=== PATIENT | female | born 1980 | race American Indian/Alaskan Native ===

== ENCOUNTER 2017-03-18 02:06 | Inpatient (IN) | payer SELFPAY ==
[2017-03-18 03:28] LABS: Anion Gap 16 mmol/L; Blood Urea Nitrogen 11 mg/dL (7-17); Calcium 8.9 mg/dL (8.4-10.2); Carbon Dioxide 26 mmol/L (22-30); Chloride 103.8 mmol/L (98-107); Glucose 100 mg/dL (65-100); Potassium 3.9 mmol/L (3.6-5.0); Sodium 142 mmol/L (137-145)
[2017-03-18 03:39] LABS: Basophils % (Auto) 0.3 % (0.0-1.8); Eosinophils % (Auto) 1.5 % (0.0-4.3); Hematocrit 38.4 % (30.3-42.9); Hemoglobin 12.6 gm/dl (10.1-14.3); Mean Corpuscular HGB Conc 33 % (30-34); Mean Corpuscular Volume 78 fl (79-97); Platelet Count 302 K/mm3 (140-440); Red Blood Count 4.96 M/mm3 (3.65-5.03); Red Cell Distribution Width 15.4 % (13.2-15.2); White Blood Count 8.1 K/mm3 (4.5-11.0)
[2017-03-18 03:41] LABS: Mean Corpuscular Hemoglobin 25 pg (28-32)
[2017-03-18 03:48] LABS: INR 0.88 (0.87-1.13)
[2017-03-18 03:49] LABS: Partial Thromboplastin Time 29.5 Sec. (24.2-36.6)
--- NOTE | 2017-03-18 07:20 | XRay Report ---
CHEST 2 VIEWS INDICATION: Cough, shortness of breath, chest tightness. COMPARISON: None similar at this institution. FINDINGS: PA and lateral chest radiographs suggest top normal heart size. Clear lungs. Unremarkable bones. CONCLUSION: No significant acute chest process, as described. Thank you for the opportunity to participate in this patient's care.
[2017-03-18] MEDS ORDERED: NITRO-BID 2% TP ONE (07:59)
[2017-03-18] MEDS ORDERED: MORPHINE IV ONE ×2 (07:59→11:00)
[2017-03-18] MEDS ORDERED: ZOFRAN IV ONE (07:59)
--- NOTE | 2017-03-18 08:04 | Emergency Department Report ---
HPI - General Chief Complaint: Chest Pain Time Seen by Provider: 03/18/17 07:48 - HPI HPI: Room 18 The patient is a 36-year-old female presenting with a chief complaint of headache and chest pain. The patient states she has had chronic intermittent headaches upon awakening for the past 56 years but has never been evaluated for them. The patient states yesterday morning she also developed substernal chest pain described as heaviness that has been constant. Patient states the pain is associated with shortness of breath but denies nausea/vomiting or diaphoresis. The patient currently gives her chest heaviness a score of 7/10. Patient states she's never had a stress test or cardiac catheterization Location: Head, chest Duration: [see above] Quality: Heaviness Severity:7/10 Modifying factors: [see above] Context: [see above] Mode of transportation: [not driving] ED Past Medical Hx - Past Medical History Previous Medical History?: No - Surgical History Past Surgical History?: Yes Additional Surgical History: TUBAL LIGATION - Family History Family history: no significant - Social History Smoking Status: Never Smoker Substance Use Type: None (denies illicit drug use), Alcohol (occasional) - Medications Home Medications: Home Medications Medication Instructions Recorded Confirmed Last Taken Type No Known Home Medications [No 03/18/17 03/18/17 Unknown History Reported Home Medications] ED Review of Systems ROS: Stated complaint: CHEST PAIN Other details as noted in HPI Comment: All other systems reviewed and negative Constitutional: denies: chills, fever Eyes: denies: eye pain, eye discharge, vision change ENT: denies: ear pain, throat pain Respiratory: shortness of breath Cardiovascular: chest pain Endocrine: no symptoms reported Gastrointestinal: denies: abdominal pain, nausea, diarrhea Genitourinary: denies: urgency, dysuria, discharge Musculoskeletal: denies: back pain, joint swelling, arthralgia Skin: denies: rash, lesions Neurological: headache Psychiatric: denies: anxiety, depression Hematological/Lymphatic: denies: easy bleeding, easy bruising Physical Exam - Physical Exam Vital Signs: Vital Signs 03/18/17 03/18/17 03/18/17 02:17 07:37 07:38 Temperature 98.2 F Pulse Rate 92 H 87 81 Respiratory 18 16 19 Rate Blood Pressure 156/115 142/92 Blood Pressure [Right] O2 Sat by Pulse 98 100 100 Oximetry 03/18/17 03/18/17 07:39 07:40 Temperature 98.3 F Pulse Rate 85 90 Respiratory 20 19 Rate Blood Pressure 142/92 Blood Pressure 142/92 [Right] O2 Sat by Pulse 100 100 Oximetry Physical Exam: GENERAL: The patient is well-developed well-nourished female lying on stretcher not appearing to be in acute distress. [] HEENT: Normocephalic. Atraumatic. Extraocular motions are intact. Patient has moist mucous membranes. PERRL NECK: Supple. Trachea midline CHEST/LUNGS: Clear to auscultation. There is no respiratory distress noted. HEART/CARDIOVASCULAR: Regular. There is no tachycardia. There is no gallop rub or murmur. ABDOMEN: Abdomen is soft, nontender. Patient has normal bowel sounds. There is no abdominal distention. SKIN: There is no rash. There is no edema. There is no diaphoresis. NEURO: The patient is awake, alert, and oriented. The patient is cooperative. The patient has no focal neurologic deficits. The patient has normal speech. Cranial nerves II through XII grossly intact, no drift. 5+/5 plantarflexion of both feet. MUSCULOSKELETAL: There is no evidence of acute injury. ED Course Vital Signs 03/18/17 03/18/17 03/18/17 02:17 07:37 07:38 Temperature 98.2 F Pulse Rate 92 H 87 81 Respiratory 18 16 19 Rate Blood Pressure 156/115 142/92 Blood Pressure [Right] O2 Sat by Pulse 98 100 100 Oximetry 03/18/17 03/18/17 07:39 07:40 Temperature 98.3 F Pulse Rate 85 90 Respiratory 20 19 Rate Blood Pressure 142/92 Blood Pressure 142/92 [Right] O2 Sat by Pulse 100 100 Oximetry ED Medical Decision Making - Lab Data Result diagrams: 03/18/17 02:33 03/18/17 02:33 Laboratory Tests 03/18/17 03/18/17 03/18/17 02:33 02:33 02:33 WBC 8.1 RBC 4.96 Hgb 12.6 Hct 38.4 MCV 78 L MCH 25 L MCHC 33 RDW 15.4 H Plt Count 302 Lymph % (Auto) 47.2 H [place] % (Auto) 8.3 H Eos % (Auto) 1.5 Baso % (Auto) 0.3 Lymph # 3.8 Corson # 0.7 Eos # 0.1 Baso # 0.0 Seg Neutrophils % 42.7 Seg Neutrophils # 3.5 PT 11.8 L INR 0.88 APTT 29.5 Sodium 142 Potassium 3.9 Chloride 103.8 Carbon Dioxide 26 Anion Gap 16 BUN 11 Creatinine 0.4 L Estimated GFR > 60 BUN/Creatinine Ratio 27.50 Glucose 100 Calcium 8.9 Troponin T < 0.010 HCG, Qual 03/18/17 03/18/17 02:33 05:20 WBC RBC Hgb Hct MCV MCH MCHC RDW Plt Count Lymph % (Auto) [place] % (Auto) Eos % (Auto) Baso % (Auto) Lymph # Cors[place] # Eos # Baso # Seg Neutrophils % Seg Neutrophils # PT INR APTT Sodium Potassium Chloride Carbon Dioxide Anion Gap BUN Creatinine Estimated GFR BUN/Creatinine Ratio Glucose Calcium Troponin T < 0.010 HCG, Qual Negative - EKG Data -: EKG Interpreted by Me EKG shows normal: sinus rhythm Rate: normal - EKG Data When compared to previous EKG there are: previous EKG unavailable Interpretation: nonspecific ST-T wave ubaldo (T-wave inversions in leads 3, V3, V4 , V5, V6) - Radiology Data Radiology results: report reviewed (CT head), image reviewed (chest x-ray, CT head) interpreted by me: Chest x-ray-no focal infiltrates, no pneumothorax CT head (read by radiologist)- no acute intracranial CT abnormalities - Differential Diagnosis ACS, GERD, pericarditis, intracranial mass, migraines Critical care attestation.: If time is entered above; I have spent that time in minutes in the direct care of this critically ill patient, excluding procedure time. ED Disposition Clinical Impression: Chest pain, T wave inversion in EKG, Headache Disposition: OP ADMIT IP TO THIS HOSP Is pt being admited?: Yes Does the pt Need Aspirin: Yes Condition: Fair Instructions: Chest Pain (ED) Referrals: PRIMARY CARE, [Primary Care Provider] - 3-5 Days Time of Disposition: 09:01 (hospitalist paged)
[2017-03-18] MEDS ORDERED: MORPHINE ONE (08:14)
--- NOTE | 2017-03-18 08:41 | Admit Criteria Form ---
Admission Criteria Documentation: CARDIOLOGY GRG Clinical Indications for Admission to Inpatient Care ([place]/check or initial the applicable condition/criteria) Hospital admission is needed for appropriate care of the patient because of ANY ONE of the following: [ ] I. Hemodynamic instability as indicated by ALL of the following (1)(2)(3) (4)(5)(6)(7)(8)(9)(10) [ ]a) Vital sign abnormality not readily corrected by appropriate treatment with 12-24 hours for ANY ONE: [ ]i) Hypotension that persists despite appropriate treatment (eg, volume repletion) [ ]ii) Tachycardiathat persists despite appropriate tx ( e.g., analgesia, fluids, sedation as indicated [ ]iii) Orthostatic vital sign changes that persists despite appropriate treatment (eg, volume repletion) [ ]b) Vital sign abnormailty that is severe indicated by ANY ONE of the following: [ ]i) Inadequate perfusion indicated by ANY ONE of the following: [ ] 1) Lactic acidosis (> 2 mmol/L) [ ] 2) New abnormal capillary refill (> 3 seconds) [ ] 3) Reduced urine output [ ] 4) New altered mental status [ ] 5) Myocardial Ischemia [ ] 6) Other metabolic acidosis (arterial pH <7.35 ) not otherwise explained. [ ]ii) Mean arterial pressure[A] less than 60 mm Hg [ ]iii) Mean arterial pressure[A] less than 70 mm Hg after 30 minutes of appropriate treatment (eg, fluid resuscitation) [ ]iv) Sustained heart rate greater than 120 beats per minute in adult or child 6 years or older[B] [ ]v) IV inotropic or vasopressor medication required to maintain adequate blood pressure or perfusion [ ] II. Severe heart failure as indicated by ANY ONE of the following(17)(18) [ ]a) Respiratory distress [ ]b) Hypotension [ ]c) Debilitating anasarca refractory to therapy (eg, tissue breakdown with infection)[C](19) [ ]d) Cardiac arrhythmias of immediate concern [ ]e) Myocardial ischemia [ ] III. Cardiac arrhythmias or findings of immediate concern indicated by ANY ONE of the following (21)(22): [ ] a) Heart rhythms that are inherently dangerous or unstable indicated by ANY ONE of the following (23)(24)(25): [ ] i) Resuscitated ventricular fibrillation or cardiac arrest [ ] ii) Ventricular escape rhythm [ ] iii) Sustained ventricular tachycardia (30 seconds or more of ventricular rhythm at greater than 100 beats per minute) [ ] iv) Nonsustained ventricular tachycardia and ANY ONE of the following: [ ] 1) Suspected cardiac ischemia as cause or consequence of ventricular tachycardia [ ] 2) Acute myocarditis [ ] b) Unstable cardiac conduction defects indicated by ANY ONE of the following(25)(26)(27) [ ] i) Type II second-degree atrioventricular block [ ]ii) Third-degree atrioventricular block [ ]iii) New-onset left bundle branch block with suspected myocardial ischemia [ ]c) Any heart rhythm and ANY ONE of the following (23)(24)(28)(29) (30) [ ] i) Continuous long-term ECG monitoring needed (e.g., initiation of drug requiring monitoring for more than 24 hours) [ ] ii) Patient has automatic implanted cardioverter defibrillator that is repeatedly firing, malfunctioning, or in need of immediate adjustment of settings beyond the scope of ambulatory or observation care [ ]d) Heart rhythms of concern due to ANY ONE of the following: [ ] i) Hypotension [ ] ii) Respiratory distress [ ] iii) Association with other significant symptoms (e.g., bradycardia with syncope or ongoing dizziness, supraventricular tachycardia with chest pain (28)(29)(31) [ ] IV. Monitoring for cardiac contusion beyond the scope of observation care needed [A](32)(33)(34) [ ] V. Surgical or device complication (e.g., valve replacement complication , ICD disfunction or pacemaker dysfunction) (49)(50)(51)(52)(53)(54) [ ] . Inpatient palliative care needed. [F](51)(52) Also use Inpatient Palliative Care Criteria [ ] VII. Nonbacterial thrombotic (marantic) endocarditis(43)(44)(55)(56)(57) [X ] VIII. Cardiology condition, symptom, or finding for which emergency and observation care has failed or are not considered appropriate. [ ] IX. Acute valvular disease requiring inpatient as indicated by ANY ONE of the following (40)(41) [ ]a) Acute valvular regurgitation (42) [ ]b) Noninfectious valvulitis (43)(44) [ ]c) Obstructive valve thrombosis (45)(46) [ ]d) Paravalvular leak(47)(48) [ ]e) Other significant valvular disorder remaining after emergency or observation level of care (as appropriate) [ ]X. Pericardial disease requiring inpatient treatment as indicated by ANY ONE of the following (35)(36)(37)(38) [ ]a) Suspected tamponade [ ]b) Hemopericardium [ ]c) Other significant pericardial disorder remaining after emergency or observation level of care (as appropriate)(39) [ ] XI. Cardiac ischemia beyond scope of emergency and observation care. [ ] XII. Cyanotic heart disease requiring inpatient care as indicated by 1 or more of the following(58)(59)(60): [ ]a) Acute onset of hypoxemia [ ]b) Exacerbation [ ] XIII. Hypertension requiring inpatient treatment as indicated by ANYONE of the following(11)(12)(13)(14): [ ]a) Severe hypertension (SBP greater than 180 mm Hg or DBP greater than 110 mm Hg, or greater than the 95th percentile for age, gender, and height in pediatric patients) that cannot be controlled (eg, to SBP less than 160 mm Hg and DBP less than 100 mm Hg) by emergency department or observation care treatment(15) [ ]b) Acute end organ damage secondary to hypertension (SBP greater than 140 mm Hg or DBP greater than 90 mm Hg) as indicated by ANYONE of the following: [ ] i) Hypertensive encephalopathy (eg, Altered mental status)(16) [ ] ii) Cerebral infarction [ ] iii) Intracranial hemorrhage [ ] iv) Myocardial ischemia or infarction [ ] v) Heart failure (eg, pulmonary edema) [ ] vi) Aortic dissection [ ] vii) Increased creatinine (new) with reduction of more than 50% in estimated glomerular filtration rate from baseline [ ] viii) Papilledema [ ] ix) Retinal hemorrhage [ ] x) Microangiopathic hemolytic anemia [ ] xi) Seizure [ ] xii) Other significant finding secondary to hypertension [ ] XIV. Complications of transplanted heart indicated by ANY ONE of the following(61): [ ]a) Acute graft rejection requiring inpatient management (eg, intravenous imunosuppression)(62)(63) [ ]b) Acute graft heart failure indicated by ANY ONE of the following(64): [ ] i) Hemodynamic instability [ ] ii) Cardiac arrhythmias of immediate concern [ ] iii) Pulmonary edema that is very severe (eg, mechanical ventilation needed, imminent or likely, need for 100% oxygen to keep oxygen saturation above 90%) [ ] iv) Pulmonary edema that is persistent as indicated by ALL of the following: [ ] 1) New need for oxygen therapy to keep oxygen saturation above 90 % (or increased FiO2 need from baseline) [ ] 2) Has not improved sufficiently with emergency department or observation care IV diuretics or other heart failure treatments[E]. [ ] iv) Altered mental status that is severe or persistent [ ] iv) Increased creatinine (new on laboratory test) with reduction of more than 50% in estimated glomerular filtration rate from baseline [ ] iv) Progressively (ongoing) rising creatinine (known from past laboratory test) with reduction of more than 25% in estimated glomerular filtration rate from baseline [ ] iv) Acute renal failure [ ] iv) Acute peripheral ischemia (eg, examination shows pulseless, cool, mottled, or cyanotic extremity) [ ] iv) Pulmonary artery catheter monitoring needed [ ] iv) Other sign or symptom of heart failure requiring inpatient treatment (ie, too severe or not responsive to outpatient and observation care treatment) [ ]c) Infection requiring inpatient management (eg, Hemodynamic instability, need for intravenous antimicrobial treatment)(66)(67)(68)(69)(70) [ ]d) Cardiac allograft vasculopathy requiring inpatient management (eg evidence of cardiacischemia)(71) [ ]e) Other complication of transplanted heart (eg, stroke, severe pulmonary hypertension, severe valvular dysfunction) requiring inpatient management(72) The original [employer] content created by [employer] has been revised. The portions of the content which have been revised are identified through the use of italic text or in bold, and [facility] has neither reviewed nor approved the modified material. All other unmodified content is copyright [facility]. Please see references footnoted in the original [facility] edition 2017 Admission Criteria Met: Yes
--- NOTE | 2017-03-18 09:15 | Cat Scan Report ---
CT HEAD WITHOUT CONTRAST INDICATION: Headache. COMPARISON: None similar. FINDINGS: Noncontrast head CT demonstrates normal, symmetric ventricles and sulci without acute or recent infarct, hemorrhage, mass effect or midline shift. No abnormal extra-axial fluid collections. Posterior fossa structures and basilar cisterns appear within normal limits. Symmetric eye globes. Mild leftward nasal septal deviation. Clear paranasal sinuses and mastoid air cells. Intact calvarium. Normal overlying scalp soft tissues. Small radiopaque dental material incidentally noted. Approximately 3.3 x 1.9 cm prominent/enlarged adenoids may be directly visualized. Bilateral earrings artifact. CONCLUSION: No acute intracranial CT abnormality, as described. Thank you for the opportunity to participate in this patient's care.
[2017-03-18] MEDS ORDERED: ASPIRIN PO ONE (09:22)
--- NOTE | 2017-03-18 09:53 | History and Physical Report ---
History of Present Illness Date of examination: 03/18/17 Date of admission: 03/18/2017 Chief complaint: Chest Pain History of present illness: Patient is a 36 years old -[place] female with no past medical history who presents to the emergency department complaining of chest pain. She states that the pain began yesterday and consisted of a sharp pain. The pain was located over the Midsternal somewhat to the left shoulder area . She noticed the pain this morning as he was getting out of bed and while the patient was walking to the bath room. She describes the quality as something is sitting on her chest /pressure without radiation to the shoulder, arm, back, or jaw. It has been a constant pain since it started last night. no alleviating or aggravating factors. He continued to have several episodes of the pain throughout this morning, she got worried so she decided to come to emergency room. Patient took Tylenol and Motrin with out improvement. At the ED the patient was given nitroglycerin and ASA somewhat believes relief the pain. She reported shortness of breath and dyspnea on exertion. She denies nausea, vomiting heart palpitations lightheadedness, dizziness, and diaphoresis during these episodes of pain. The patient currently denies having chest pain. She He has never had chest pain in the past and no prior cardiac workup. Patient also states she has had chronic intermittent headaches upon awakening for the past 5- 6 years but has never been evaluated for that. Past History Past Medical History: No medical history Past Surgical History: No surgical history Social history: denies: smoking, alcohol abuse Family history: CAD, hypertension Medications and Allergies Allergies Allergy/AdvReac Type Severity Reaction Status Date / Time No Known Allergies Allergy Verified 03/18/17 02:17 Home Medications Medication Instructions Recorded Confirmed Last Taken Type No Known Home Medications [No 03/18/17 03/18/17 Unknown History Reported Home Medications] Active Meds: Active Medications Acetaminophen (Tylenol) 650 mg PO Q4H PRN PRN Reason: Pain MILD(1-3)/Fever >100.5/MOSELEY Aspirin (Aspirin) [address] Bisacodyl (Dulcolax) 10 mg GA QDAY PRN PRN Reason: Constipation unrelieved by MOM Enoxaparin Sodium (Lovenox) 40 mg SUB-Q QDAY COURT Magnesium Hydroxide (Milk Of Magnesia) 30 ml PO Q4H PRN PRN Reason: Constipation Morphine Sulfate (Morphine) 2 mg IV Q4H PRN PRN Reason: pain 7-10 Nitroglycerin (Nitrostat) 0.4 mg SL .Q5MIN PRN PRN Reason: Chest Pain Ondansetron HCl (Zofran) 4 mg IV Q8H PRN PRN Reason: N/V unrelieved by Reglan Review of Systems Constitutional: no weight gain, no fever, no chills Ears, nose, mouth and throat: no ear discharge, no tinnitis, no decreased hearing, no nose pain Cardiovascular: no chest pain, no orthopnea, no palpitations Respiratory: no cough, no cough with sputum, no excessive sputum Gastrointestinal: no nausea, no vomiting, no diarrhea Genitourinary Female: no flank pain, no menorrhagia, no dysuria, no urinary frequency Menstruation: no currently menstrual, no premenarcheal, no post hysterectomy Rectal: no pain, no incontinence Musculoskeletal: no neck stiffness, no neck pain, no shooting arm pain Integumentary: no rash, no pruritis, no redness, no sores Neurological: no paralysis, no weakness, no parathesias, no numbness Psychiatric: no anxiety, no memory loss, no change in sleep habits, no sleep disturbances Endocrine: no cold intolerance, no heat intolerance, no polyphagia, no excessive thirst Hematologic/Lymphatic: no easy bruising, no easy bleeding Allergic/Immunologic: no urticaria, no allergic rhinitis Exam - Constitutional Vitals: Temp Pulse Resp BP Pulse Ox 98.3 F 82 18 146/96 100 03/18/17 07:39 03/18/17 09:00 03/18/17 09:15 03/18/17 09:00 03/18/17 09:00 General appearance: Present: no acute distress - EENT Eyes: Present: PERRL ENT: hearing intact - Neck Neck: Present: supple - Respiratory Respiratory effort: normal Respiratory: bilateral: CTA - Cardiovascular Heart rate: 100 Rhythm: regular Heart Sounds: Present: S1 & S2 - Extremities Extremities: no ischemia Peripheral Pulses: within normal limits - Abdominal General gastrointestinal: Present: soft, non-tender Female genitourinary: Present: deferred - Rectal Rectal Exam: deferred - Integumentary Integumentary: Present: clear, warm, dry - Musculoskeletal Musculoskeletal: strength equal bilaterally - Psychiatric Psychiatric: appropriate mood/affect - Neurologic Neurologic: CNII-XII intact - Allied Health Allied health notes reviewed: nursing Results - Labs CBC & Chem 7: 03/18/17 02:33 03/18/17 02:33 Labs: Laboratory Last Values WBC 8.1 K/mm3 (4.5-11.0) 03/18/17 02:33 RBC 4.96 M/mm3 (3.65-5.03) 03/18/17 02:33 Hgb 12.6 gm/dl (10.1-14.3) 03/18/17 02:33 Hct 38.4 % (30.3-42.9) 03/18/17 02:33 MCV 78 fl (79-97) L 03/18/17 02:33 MCH 25 pg (28-32) L 03/18/17 02:33 MCHC 33 % (30-34) 03/18/17 02:33 RDW 15.4 % (13.2-15.2) H 03/18/17 02:33 Plt Count 302 K/mm3 (140-440) 03/18/17 02:33 Lymph % (Auto) 47.2 % (13.4-35.0) H 03/18/17 02:33 [place] % (Auto) 8.3 % (0.0-7.3) H 03/18/17 02:33 Eos % (Auto) 1.5 % (0.0-4.3) 03/18/17 02:33 Baso % (Auto) 0.3 % (0.0-1.8) 03/18/17 02:33 Lymph # 3.8 K/mm3 (1.2-5.4) 03/18/17 02:33 [place] # 0.7 K/mm3 (0.0-0.8) 03/18/17 02:33 Eos # 0.1 K/mm3 (0.0-0.4) 03/18/17 02:33 Baso # 0.0 K/mm3 (0.0-0.1) 03/18/17 02:33 Seg Neutrophils % 42.7 % (40.0-70.0) 03/18/17 02:33 Seg Neutrophils # 3.5 K/mm3 (1.8-7.7) 03/18/17 02:33 PT 11.8 Sec. (12.2-14.9) L 03/18/17 02:33 INR 0.88 (0.87-1.13) 03/18/17 02:33 APTT 29.5 Sec. (24.2-36.6) 03/18/17 02:33 Sodium 142 mmol/L (137-145) 03/18/17 02:33 Potassium 3.9 mmol/L (3.6-5.0) 03/18/17 02:33 Chloride 103.8 mmol/L (98-107) 03/18/17 02:33 Carbon Dioxide 26 mmol/L (22-30) 03/18/17 02:33 Anion Gap 16 mmol/L 03/18/17 02:33 BUN 11 mg/dL (7-17) 03/18/17 02:33 Creatinine 0.4 mg/dL (0.7-1.2) L 03/18/17 02:33 Estimated GFR > 60 ml/min 03/18/17 02:33 BUN/Creatinine Ratio 27.50 % 03/18/17 02:33 Glucose 100 mg/dL (65-100) 03/18/17 02:33 Calcium 8.9 mg/dL (8.4-10.2) 03/18/17 02:33 Troponin T < 0.010 ng/mL (0.00-0.029) 03/18/17 08:50 HCG, Qual Negative (Negative) 03/18/17 02:33 - Imaging and Cardiology Chest x-ray: image reviewed (unremarkable AP chest) CT Scan - head: image reviewed (acute intercranial process) Assessment and Plan Assessment and plan: ASSESSMENT/PLAN Chest Pain We will admit to telemetry floor. EKG normal sinus rate [address] elevation or T-wave inversion. We will get another EKG ordered for a changes that have taken since the first one obtained Negative cardiac enzyme X3 Start on aspirin Nitroglycerin when necessary Morphine ordered for pain Stress test ordered. Hypertension Started on HCTZ 12mg daily IV hydralazine for SBP >160 Closely monitor blood pressure Chronic headache Normal CT of the head Pain will controlled with Tylenol DVT prophylaxis Lovenox Advance Directives: Yes (Full Code) VTE prophylaxis?: Chemical Contraindication Mechanical VTE Prophylaxis: Treatment Not Indicated Plan of care discussed with patient/family: Yes
[2017-03-18] MEDS ORDERED: LEXISCAN IV ONE (10:37)
[2017-03-18] MEDS ORDERED: DULCOLAX PR PRN (11:00)
[2017-03-18] MEDS ORDERED: NITROSTAT SL PRN (11:00)
[2017-03-18] MEDS ORDERED: MILK OF MAGNESIA PO PRN (11:30)
[2017-03-18] MEDS ORDERED: ZOFRAN IV PRN (11:30)
[2017-03-18] MEDS ORDERED: ASPIRIN PO SCH (11:30)
[2017-03-18] MEDS ORDERED: MORPHINE IV PRN (11:30)
[2017-03-18] MEDS ORDERED: TYLENOL PO PRN (11:30)
[2017-03-18] MEDS: LOVENOX SUB-Q SCH (12:36)
--- NOTE | 2017-03-18 18:57 | Event Note ---
Date: 03/18/17 Patient seen and evaluated. Agree with PULP PILER's note.
--- NOTE | 2017-03-19 00:37 | Treadmill Report ---
INDICATION: Chest pain. ORDERING PHYSICIAN: Triston Jensen MD FINDINGS: There is no scintigraphic evidence of myocardial ischemia. There is evidence of anterior wall attenuation. The left ventricle is normal in size and systolic function with the left ventricular ejection fraction measured at 63%. Normal wall motion and wall thickening is noted on gated imaging. CONCLUSION: 1. No scintigraphic evidence of myocardial ischemia. 2. Anterior wall attenuation is noted on stress imaging. 3. Normal left ventricular size and systolic function. 4. Low risk myocardial perfusion scan. JOB# [id number] BENNY/NTS
[2017-03-19 06:21] LABS: Basophils % (Auto) 0.3 % (0.0-1.8); Eosinophils % (Auto) 1.4 % (0.0-4.3); Hematocrit 37.3 % (30.3-42.9); Hemoglobin 12.1 gm/dl (10.1-14.3); Mean Corpuscular HGB Conc 32 % (30-34); Mean Corpuscular Volume 78 fl (79-97); Platelet Count 291 K/mm3 (140-440); Red Blood Count 4.76 M/mm3 (3.65-5.03); Red Cell Distribution Width 15.4 % (13.2-15.2); White Blood Count 7.7 K/mm3 (4.5-11.0)
[2017-03-19 06:25] LABS: Mean Corpuscular Hemoglobin 25 pg (28-32)
[2017-03-19 06:35] LABS: Anion Gap 16 mmol/L; Blood Urea Nitrogen 11 mg/dL (7-17); Calcium 8.4 mg/dL (8.4-10.2); Carbon Dioxide 23 mmol/L (22-30); Chloride 104.9 mmol/L (98-107); Glucose 90 mg/dL (65-100); Potassium 4.4 mmol/L (3.6-5.0); Sodium 139 mmol/L (137-145)
--- NOTE | 2017-03-19 09:25 | Discharge Summary ---
Providers - Providers Date of Admission: 03/18/17 09:45 Date of discharge: 03/19/17 Attending physician: BRANDEN SETHI Primary care physician: [facility] Hospitalization Reason for admission: chest pain Condition: Good Pertinent studies: CXR CT head Stress test Procedures: 36 years old obese female presented for chest pain. Acute coronary syndrome was excluded based on EKG, serial cardiac enzymes and stress test. Most likely secondary to GERD. She is started on Pepcid and discharged in stable condition with PCP follow-up. Foounf to have HTN and treatment inirtiated with HCTZ. Discharge diagnoses: 1. Atypical chest pain - likely secondary to GERD 2. HTN 3. Migraines 4. Obesity Disposition: DC- TO HOME OR SELFCARE Time spent for discharge: 35 min Core Measure Documentation - Palliative Care Palliative Care/ Comfort Measures: Not Applicable - Core Measures Any of the following diagnoses?: none Exam - Physical Exam Narrative exam: Patient seen and examined: - Constitutional Vitals: Temp Pulse Resp BP Pulse Ox 98.3 F 84 19 119/78 97 03/19/17 05:45 03/19/17 05:45 03/19/17 05:45 03/19/17 05:45 03/19/17 05:45 General appearance: Present: no acute distress, obese - Neck Neck: Present: supple, normal ROM. Absent: masses or JVD - Respiratory Respiratory effort: normal Respiratory: bilateral: CTA, negative: rhonchi, wheezing - Cardiovascular Rhythm: regular Heart Sounds: Present: S1 & S2. Absent: systolic murmur - Extremities Extremities: no ischemia - Abdominal General gastrointestinal: Present: soft, non-tender, non-distended, normal bowel sounds - Psychiatric Psychiatric: cooperative - Neurologic Neurologic: CNII-XII intact, no focal deficits Plan Activity: no restrictions Diet: low cholesterol, low salt Follow up with: PRIMARY CARE, [Primary Care Provider] - 3-5 Days Prescriptions: Butalb/Acetaminophen/Caffeine [Fioricet 50-300-40 mg CAP] 1 cap PO Q6HR PRN #20 cap PRN Reason: Headache Famotidine [Pepcid] 20 mg PO BID #60 tablet Hydrochlorothiazide [HCTZ] 12.5 mg PO QDAY #30 capsule
[2017-03-19 09:27] VITALS: BP 135/86
[2017-03-19] MEDS ORDERED: HCTZ PO SCH (10:00)
[2017-03-19] MEDS ORDERED: ASPIRIN PO SCH (10:00)
[2017-03-19] MEDS: LOVENOX SUB-Q SCH (10:19)
[2017-03-19] MEDS ORDERED: Fluarix Quad 2017-2018(36 MOS+) IM ONE (12:00)
== END 2017-03-19 10:34 | disposition home or self-care (01) | DRG 392 ==
LOC: ED 02:06 → 4A 09:45
PROVIDERS: ADMIT Internal Medicine; ATTEND Internal Medicine
DX: K21.9 Gastro-esophageal reflux disease without esophagitis (principal); Z68.42 Body mass index [BMI] 45.0-49.9, adult; R07.9 Chest pain, unspecified; Z98.51 Tubal ligation status; Z82.49 Family history of ischemic heart disease and other diseases of the circulatory system; I10 Essential (primary) hypertension; G43.909 Migraine, unspecified, not intractable, without status migrainosus; E66.9 Obesity, unspecified
CPT/HCPCS: 36415; 70450; 71020; 78452; 80048; 84484; 84703; 85025; 85610; 85730; 90686; 93005; 93010; 93017; 94760; 96374; 96375; A9502; J1650; J2270; J2405; J2785

== ENCOUNTER 2017-09-02 21:59 | Emergency (ER) | payer SELFPAY | END 2017-09-02 22:00 | disposition left against medical advice (07) | LOC: ED 21:59 | DX: J00 Acute nasopharyngitis [common cold] (principal); Z53.21 Procedure and treatment not carried out due to patient leaving prior to being seen by health care provider ==

== ENCOUNTER 2018-02-13 06:15 | Emergency (ER) | payer OTHER, MEDICAID ==
[2018-02-13] MEDS ORDERED: MOTRIN PO ONE (06:39)
[2018-02-13 06:40] VITALS: BP 132/83
--- NOTE | 2018-02-13 07:20 | XRay Report ---
FINAL REPORT EXAM: XR SPINE LUMBOSACRAL 2-3V HISTORY: lower back pain TECHNIQUE: AP and lateral views of the lumbar spine were obtained. FINDINGS: There is a grade 1 to grade 2 anterolisthesis of L5 over S1 secondary to mild disc degeneration and bilateral pars defects. The upper lumbar discs are normal in height and alignment. There is no evidence of fracture. The SI joints appear normal. The soft tissues otherwise are unremarkable. IMPRESSION: Grade 1 to grade 2 anterolisthesis of L5 over S1 secondary to bilateral pars defects and disc degeneration.
[2018-02-13] MEDS ORDERED: TORADOL IM ONE (07:41)
[2018-02-13 07:42] LABS: Bacteria,Urine 1+ /HPF (Negative); Bilirubin,Urine NEG (Negative); Blood,Urine NEG (Negative); Color,Urine Yellow (Yellow); Mucus,Urine FEW /HPF
[2018-02-13 07:45] LABS: HCG Qualitative,Urine Negative (Negative)
--- NOTE | 2018-02-13 07:46 | Emergency Department Report ---
ED Back Pain/Injury HPI - General Chief Complaint: Back Pain/Injury Stated Complaint: BACK PAIN Time Seen by Provider: 02/13/18 07:30 Source: patient Limitations: No Limitations - History of Present Illness Initial Comments: This is a 37-year-old female nontoxic, well nourished in appearance, no acute signs of distress presents to the ED with c/o of acute on chronic lower back pain. Patient stated that the past 2 days she was lifting a person at work at an [employer] and developed pain that night. Patient states has history of sciatica nerve pain which is similar symptoms as today. Patient states that pain radiates through to his left lower extremity. Patient denies any trauma. Denies any bladder or bowel instability. Patient denies any urinary symptoms. Denies any fever, chills, nausea, vomiting, headache, stiff neck, chest pain or shortness of breath. Patient denies any numbness or tingling. Denies any allergies. Denies significant past medical history. MD Complaint: back pain -: days(s) (2) Similar Symptoms Previously: Yes Place: work Radiation: left leg Severity: mild Severity scale (0 -10): 8 Quality: aching Consistency: constant Improves With: immobilization, supine, sitting upright Worsens With: movement, walking Context: while lifting, turning/twisting Associated Symptoms: denies other symptoms. denies: confusion, weakness, chest pain, numbness, difficulty walking, cough, difficulty urinating, diaphoresis, incontinence, fever/chills, constipation, headaches, abdominal pain, loss of appetite, malaise, nausea/vomiting, rash, seizure, shortness of breath, syncope - Related Data Previous Rx's Medication Instructions Recorded Last Taken Type Butalb/Acetaminophen/Caffeine 1 cap PO Q6HR PRN #20 cap 03/19/17 Unknown Rx [Fioricet 50-300-40 mg CAP] Hydrochlorothiazide [HCTZ] 12.5 mg PO QDAY #30 capsule 03/19/17 Unknown Rx Famotidine [Pepcid] 20 mg PO BID #60 tablet 03/20/17 Unknown Rx Cyclobenzaprine [Flexeril] 10 mg PO QHS PRN #10 tablet 02/13/18 Unknown Rx Ibuprofen [Motrin] 600 mg PO Q8H PRN #30 tablet 02/13/18 Unknown Rx Allergies Allergy/AdvReac Type Severity Reaction Status Date / Time No Known Allergies Allergy Verified 03/18/17 02:17 ED Review of Systems ROS: Stated complaint: BACK PAIN Other details as noted in HPI Constitutional: denies: chills, fever Eyes: denies: eye pain, eye discharge, vision change ENT: denies: ear pain, throat pain Respiratory: denies: cough, shortness of breath, wheezing Cardiovascular: denies: chest pain, palpitations Endocrine: no symptoms reported Gastrointestinal: denies: abdominal pain, nausea, diarrhea Genitourinary: denies: urgency, dysuria, discharge Musculoskeletal: back pain. denies: joint swelling, arthralgia Skin: denies: rash, lesions Neurological: denies: headache, weakness, paresthesias Psychiatric: denies: anxiety, depression Hematological/Lymphatic: denies: easy bleeding, easy bruising ED Past Medical Hx - Past Medical History Hx Hypertension: Yes Additional medical history: Obesity - Surgical History Additional Surgical History: TUBAL LIGATION - Social History Smoking Status: Never Smoker Substance Use Type: None - Medications Home Medications: Home Medications Medication Instructions Recorded Confirmed Last Taken Type Butalb/Acetaminophen/Caffeine 1 cap PO Q6HR PRN #20 cap 03/19/17 Unknown Rx [Fioricet 50-300-40 mg CAP] Hydrochlorothiazide [HCTZ] 12.5 mg PO QDAY #30 capsule 03/19/17 Unknown Rx Famotidine [Pepcid] 20 mg PO BID #60 tablet 03/20/17 Unknown Rx Cyclobenzaprine [Flexeril] 10 mg PO QHS PRN #10 tablet 02/13/18 Unknown Rx Ibuprofen [Motrin] 600 mg PO Q8H PRN #30 tablet 02/13/18 Unknown Rx ED Physical Exam - General Limitations: No Limitations General appearance: alert, in no apparent distress - Head Head exam: Present: atraumatic, normocephalic - Eye Eye exam: Present: normal appearance Pupils: Present: normal accommodation - ENT ENT exam: Present: normal exam, mucous membranes moist - Neck Neck exam: Present: normal inspection, full ROM. Absent: tenderness, meningismus, lymphadenopathy - Respiratory Respiratory exam: Present: normal lung sounds bilaterally. Absent: respiratory distress, wheezes, rales, rhonchi, stridor, chest wall tenderness, accessory muscle use, decreased breath sounds, prolonged expiratory - Cardiovascular Cardiovascular Exam: Present: regular rate, normal rhythm, normal heart sounds. Absent: bradycardia, tachycardia, irregular rhythm, systolic murmur, diastolic murmur, rubs, gallop - GI/Abdominal GI/Abdominal exam: Present: soft, normal bowel sounds. Absent: distended, tenderness, guarding, rebound, rigid, diminished bowel sounds - Extremities Exam Extremities exam: Present: normal inspection, full ROM, normal capillary refill. Absent: tenderness - Back Exam Back exam: Present: normal inspection, full ROM, paraspinal tenderness (lumbar region). Absent: tenderness, CVA tenderness (R), CVA tenderness (L), muscle spasm, vertebral tenderness, rash noted - Neurological Exam Neurological exam: Present: alert, oriented X3, normal gait - Psychiatric Psychiatric exam: Present: normal affect, normal mood - Skin Skin exam: Present: warm, dry, intact, normal color. Absent: rash ED Course Vital Signs 02/13/18 06:33 Temperature 98.4 F Pulse Rate 82 Respiratory 18 Rate Blood Pressure 132/83 O2 Sat by Pulse 97 Oximetry - Reevaluation(s) Reevaluation #1: 02/13/18 08:11 Patient is speaking in full sentences with no signs of distress noted. ED Medical Decision Making - Medical Decision Making This is a 37-year-old female that presents with low back strain. Patient is stable was examined by me. There is no spinal tenderness. There is no cauda equina syndrome during examination. No bladder or bowel instability. Patient received Toradol 30 mg IM in the ED which preceded his symptoms has resolved and subsided. Patient is discharged with muscle relaxant and Motrin. Patient was instructed not to operate any machinery while taking muscle relaxant as they cause her drowsiness. Patient was referred to Follow-up with a primary care doctor in 3-5 days or if symptoms worsen and continue return to emergency room as soon as possible. At time of discharge, the patient does not seem toxic or ill in appearance. No acute signs of distress noted. Patient agrees to discharge treatment plan of care. No further questions noted by the patient. This chart is dictated with using [employer] Dictation [employer] Critical care attestation.: If time is entered above; I have spent that time in minutes in the direct care of this critically ill patient, excluding procedure time. ED Disposition Clinical Impression: Low back strain Qualifiers: Encounter type: initial encounter Qualified Code(s): S39.012A - Strain of muscle, fascia and tendon of lower back, initial encounter Disposition: DC-01 TO HOME OR SELFCARE Is pt being admited?: No Does the pt Need Aspirin: No Condition: Stable Instructions: Low Back Strain (ED), Cyclobenzaprine (By mouth), Ibuprofen (By mouth) Additional Instructions: Follow-up with your primary care doctor in 3-5 days or if symptoms worsen such as bladder or bowel stability, chest pain, short of breath, numbness or tingling sensation in extremities, headache, dizziness, visual changes, nausea vomiting, or abdominal pain, return back to emergency room as was possible. Take ibuprofen and Flexeril as prescribed. Do not operate heavy machinery while taking Flexeril due to sedation Prescriptions: Cyclobenzaprine [Flexeril] 10 mg PO QHS PRN #10 tablet PRN Reason: Muscle Spasm Ibuprofen [Motrin] 600 mg PO Q8H PRN #30 tablet PRN Reason: Pain Referrals: [place],[facility] [Other] - 3-5 Days PRIMARY CAREMD [Referring] - 3-5 Days DANIELLE MORRIS MD [Staff Physician] - 3-5 Days [facility] [Outside] - 3-5 Days Forms: Work/School Release Form(ED)
== END 2018-02-13 08:26 | disposition home or self-care (01) ==
LOC: ED 06:15
DX: S39.012A Strain of muscle, fascia and tendon of lower back, initial encounter (principal); I10 Essential (primary) hypertension; Z98.51 Tubal ligation status; X50.0XXA Overexertion from strenuous movement or load, initial encounter; Y93.89 Activity, other specified; Y92.89 Other specified places as the place of occurrence of the external cause; Y99.8 Other external cause status
CPT/HCPCS: 72100; 81001; 81025; 96372; 99284; J1885

== ENCOUNTER 2019-07-19 15:47 | Emergency (ER) | payer MEDICAID, OTHER ==
--- NOTE | 2019-07-19 17:11 | Event Note ---
ED Screening Note ED Screening Note: productive cough x 3 weeks +sob PMhX htn no allergies LNMP end of may tubal ligation signed form stating not for XR This initial assessment/diagnostic orders/clinical plan/treatment(s) is/are subject to change based on patients health status, clinical progression and re- assessment by fellow clinical providers in the ED. Further treatment and workup at subsequent clinical providers discretion. Patient/guardian urged not to elope from the ED as their condition may be serious if not clinically assessed and managed. Initial orders include: CXR
--- NOTE | 2019-07-19 18:56 | XRay Report ---
CHEST PA AND LATERAL VIEWS INDICATION: prod cough. COMPARISON: 03/18/2017 FINDINGS: Support devices: None Heart: Normal and unchanged Lungs/Pleura: No acute pulmonary or pleural findings. IMPRESSION: 1. No active disease and no interval change. Signer Name: Janak Jackson MD Signed: 07/19/2019 6:52 PM Workstation Name: [id number]
--- NOTE | 2019-07-19 20:31 | Emergency Department Report ---
Upper Respiratory HPI - HPI Chief Complaint: Upper Respiratory Infection Stated Complaint: SORE BODY/CHILLS/COUGH Time Seen by Provider: 07/19/19 17:10 Duration: 3 weeks URI Symptoms: Rhinorrhea: No, Sore Throat: No, Ear Pain: No, Cough: Yes, Shortness of Breath: No, Sick Contacts: No, Unable to Take Fluids: No, Urine Output Abnormal: No, Listless Behavior: No Other History: This is a 39-year-old female nontoxic, well nourished in appearance, no acute signs of distress presents to the ED with c/o of dry cough, rhinorrhea, nasal congestion x3 weeks. Patient denies any sick contacts. Patie nt denies any recent travels, long car, recent hospital stays. Patient denies any calf pain or calf tenderness. Patient denies any chest pain, short of breath, fever, chills, nausea, vomiting, hemoptysis, numbness, tingling, headache or stiff neck. Patient denies any allergies to significant past medical history. - Home Meds and Allergies Home Medications: Previous Rx's Medication Instructions Recorded Last Taken Type Butalb/Acetaminophen/Caffeine 1 cap PO Q6HR PRN #20 cap 03/19/17 Unknown Rx [Fioricet 50-300-40 mg CAP] hydroCHLOROthiazide [HCTZ] 12.5 mg PO QDAY #30 capsule 03/19/17 Unknown Rx Famotidine [Pepcid] 20 mg PO BID #60 tablet 03/20/17 Unknown Rx Cyclobenzaprine [Flexeril] 10 mg PO QHS PRN #10 tablet 02/13/18 Unknown Rx Ibuprofen [Motrin] 600 mg PO Q8H PRN #30 tablet 02/13/18 Unknown Rx Benzonatate [Tessalon Perles] 100 mg PO Q8HR PRN #20 capsule 07/19/19 Unknown Rx Prednisone [predniSONE 10 mg 10 mg PO .TAPER #1 tab.ds.pk 07/19/19 Unknown Rx (6-Day Pack, 21 Tabs)] Allergies/Adverse Reactions: Allergies Allergy/AdvReac Type Severity Reaction Status Date / Time No Known Allergies Allergy Verified 03/18/17 02:17 ED Review of Systems ROS: Stated complaint: SORE BODY/CHILLS/COUGH Other details as noted in HPI Constitutional: denies: chills, fever Eyes: denies: eye pain, eye discharge, vision change ENT: congestion. denies: ear pain, throat pain Respiratory: cough. denies: shortness of breath, wheezing Cardiovascular: denies: chest pain, palpitations Endocrine: no symptoms reported Gastrointestinal: denies: abdominal pain, nausea, diarrhea Genitourinary: denies: urgency, dysuria, discharge Musculoskeletal: denies: back pain, joint swelling, arthralgia Skin: denies: rash, lesions Neurological: denies: headache, weakness, paresthesias Psychiatric: denies: anxiety, depression Hematological/Lymphatic: denies: easy bleeding, easy bruising ED Past Medical Hx - Past Medical History Previous Medical History?: Yes Hx Hypertension: Yes Additional medical history: Obesity - Surgical History Past Surgical History?: Yes Additional Surgical History: TUBAL LIGATION - Social History Smoking Status: Never Smoker Substance Use Type: None - Medications Home Medications: Home Medications Medication Instructions Recorded Confirmed Last Taken Type Butalb/Acetaminophen/Caffeine 1 cap PO Q6HR PRN #20 cap 03/19/17 Unknown Rx [Fioricet 50-300-40 mg CAP] hydroCHLOROthiazide [HCTZ] 12.5 mg PO QDAY #30 capsule 03/19/17 Unknown Rx Famotidine [Pepcid] 20 mg PO BID #60 tablet 03/20/17 Unknown Rx Cyclobenzaprine [Flexeril] 10 mg PO QHS PRN #10 tablet 02/13/18 Unknown Rx Ibuprofen [Motrin] 600 mg PO Q8H PRN #30 tablet 02/13/18 Unknown Rx Benzonatate [Tessalon Perles] 100 mg PO Q8HR PRN #20 capsule 07/19/19 Unknown Rx Prednisone [predniSONE 10 mg 10 mg PO .TAPER #1 tab.ds.pk 07/19/19 Unknown Rx (6-Day Pack, 21 Tabs)] ED Bronchiolitis Physical Exam - Exam General: Vital signs noted. No distress. Alert and acting appropriately. Neurologic: Alert and oriented, no deficits. Musculoskeletal: Unremarkable. ED Bronchiolitis Tests - Testing Testing: CXR: Normal/Negative ED Physical Exam - General Limitations: No Limitations General appearance: alert, in no apparent distress - Head Head exam: Present: atraumatic, normocephalic - Eye Eye exam: Present: normal appearance - ENT ENT exam: Present: normal exam, normal orophraynx - Neck Neck exam: Present: normal inspection, full ROM. Absent: tenderness, meningismus, lymphadenopathy - Respiratory Respiratory exam: Present: normal lung sounds bilaterally. Absent: respiratory distress, wheezes, rales, rhonchi, stridor, chest wall tenderness, accessory muscle use, decreased breath sounds, prolonged expiratory - Cardiovascular Cardiovascular Exam: Present: regular rate, normal rhythm, normal heart sounds. Absent: bradycardia, tachycardia, irregular rhythm, systolic murmur, diastolic murmur, rubs, gallop - Extremities Exam Extremities exam: Present: normal inspection, full ROM - Back Exam Back exam: Present: normal inspection, full ROM - Neurological Exam Neurological exam: Present: alert, oriented X3, normal gait - Psychiatric Psychiatric exam: Present: normal affect, normal mood - Skin Skin exam: Present: warm, dry, intact, normal color. Absent: rash ED Course Vital Signs 07/19/19 17:06 Temperature 98.4 F Pulse Rate 90 Respiratory 18 Rate Blood Pressure 168/95 O2 Sat by Pulse 97 Oximetry - Reevaluation(s) Reevaluation #1: 07/19/19 20:31 Patient is speaking in full sentences with no signs of distress noted. ED Medical Decision Making - Medical Decision Making This is a 39-year-old female that presents with bronchitis. Patient is stable and was examined by me. Chest x-ray has been obtained and dictated by radiologist with normal exam. Patient is notified of x-ray results with no questions noted. Patient was instructed to increase hydration, rest and take Motrin for fever episodes. Vitals stable. Patient is nonfebrile and normal heart rate. Patient was instructed Follow-up with a primary care doctor in 3-5 days or if symptoms worsen and continue return to emergency room as soon as possible. At time time of discharge, the patient does not seem toxic or ill in appearance. No acute signs of distress noted. Patient agrees to discharge treatment plan of care. No further questions noted by the patient. Critical care attestation.: If time is entered above; I have spent that time in minutes in the direct care of this critically ill patient, excluding procedure time. ED Disposition Clinical Impression: Bronchitis Disposition: DC-01 TO HOME OR SELFCARE Is pt being admited?: No Does the pt Need Aspirin: No Condition: Stable Instructions: Acute Bronchitis (ED) Additional Instructions: Follow-up with a primary care doctor in 3-5 days or if symptoms worsen and continue return to emergency room as soon as possible. Prescriptions: Prednisone [predniSONE 10 mg (6-Day Pack, 21 Tabs)] 10 mg PO .TAPER #1 tab.ds.pk Benzonatate [Tessalon Perles] 100 mg PO Q8HR PRN #20 capsule PRN Reason: Cough Referrals: PRIMARY CARE, [Referring] - 3-5 Days BEVERLEY DUDLEY MD [Staff Physician] - 3-5 Days [facility] [Outside] - 3-5 Days Forms: Work/School Release Form(ED)
[2019-07-19 20:43] VITALS: BP 128/84
== END 2019-07-19 20:42 | disposition home or self-care (01) ==
LOC: ED 15:47
DX: J40 Bronchitis, not specified as acute or chronic (principal); I10 Essential (primary) hypertension; Z98.51 Tubal ligation status; Z79.1 Long term (current) use of non-steroidal anti-inflammatories (NSAID); Z79.899 Other long term (current) drug therapy
CPT/HCPCS: 71046